=== PATIENT | female | born 1995 | race Caucasian/White ===

== ENCOUNTER 2019-01-04 20:38 | Emergency (ER) | payer OTHER ==
[~2019-01-04] VITALS: Ht 167.6 cm; Wt 80.1 kg
[2019-01-04 20:52] VITALS: BP 140/73
--- NOTE | 2019-01-04 20:58 | NUR ---
PT AMBULATED TO BED 03.
--- NOTE | 2019-01-04 21:00 | NUR ---
23 Y/O FEMALE PRESENTS TO ED, C/O ANXIETY AND NUMBNESS ON NECK. 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 NO STROKE SYMPTOMS NOTED. PT DENIES ANY HEADACHE OR N/V. STRONG BUTTON SEWER STRENGTH. ABLE TO AMBULATE WITH SLOW STEADY GAIT. PT VSS. ERMD AWARE. WILL CONTINUE TO MONITOR.
--- NOTE | 2019-01-04 21:09 | NUR ---
Dr. Cabello examining patient.
[2019-01-04 21:40] VITALS: BP 139/67
--- NOTE | 2019-01-04 21:40 | NUR ---
PT DISCHARGED WITH PAPERWORK. RX ANTARAX. EDUCATED PT REGARDING MEDICATION AND S/E. EDUCATED PT REGARDING D/C INSTRUCTIONS AND DIAGNOSIS. PT VERBALIZED UNDERSTANDING OF TEACHING. TOLD PT TO FOLLOW UP WITH PCP AND WHEN TO RETURN TO ED. PT VSS. ALL QUESTIONS ANSWERED.
== END 2019-01-04 21:40 | disposition home or self-care (01) ==
LOC: MED 20:38
DX: F41.9 Anxiety disorder, unspecified (principal); R20.0 Anesthesia of skin
CPT/HCPCS: 99284